=== PATIENT | female | born 1955 | race Caucasian/White ===

== ENCOUNTER 2021-03-30 02:13 | Day surgery (SDC) | payer MEDICARE, SELFPAY ==
[2021-03-21 12:16] VITALS: BMI 25.7
--- NOTE | 2021-03-21 12:24 | PC.NURSE ---
Report to the Outpatient Waiting Room, entrance under the green pavilion located off [facility], at time __0600_ on date _03/30/21__. OR Time: __729___. - You and your visitor will be asked a series of questions to screen for COVID 19 for your protection. - A mask is required within the hospital. - Only one visitor is allowed at this time. Patient visitors will be guided where to wait when not with patient. Preoperative COVID Testing Requirements: No COVID Test needed if: (proof is required; if not received patient will have Rapid Test prior to entry) - Patient has received COVID Vaccine at least 14 days prior to procedure date or - Patient has positive COVID test result within last 90 days of surgery date. COVID Test needed if above criteria is not met If not COVID vaccinated a COVID test must be conducted within 72 hours of surgery and patient is asked to isolate self from time of testing until procedure. You will go to the [employer] [facility] Testing Site for your COVID testing. The [employer] [facility] Testing site is located at the corner of [address] from [facility]. You will only be called if COVID results are positive and your surgeon may reschedule your elective surgery date. Patients may have clear liquids (water, carbonated beverages, clear teas, apple juice) until 3 hours prior to surgery with a maximum of 20 ounces. - No food from midnight until time of surgery - Infants may have breast milk until 4 hours before surgery, infant formula 6 hours prior to surgery. - Children will be allowed to drink immediately following surgery. If applicable, please bring a bottle or sippy cup to assist with drinking. Juice, water, soda, and popsicles are readily available. For infants on formula, please bring formula the day of surgery. Pacifiers are allowed. Take the following medications with a SIP of water the morning of surgery: __PROPYLTHIOURACIL Medications to discontinue per physician Date to take last dose Please no make-up, nail occitan, hairspray, perfume, deodorant, or body powder the day of surgery. No jewelry (including any body piercings) or valuables the day of surgery, leave them at home. Please take a shower or bath the night before, or the morning of, surgery with an antibacterial soap. Wear comfortable, loose fitting clothing. Children are encouraged to wear pajamas. - Jewelry must be removed prior to entering the operating room. Rings and piercings that are not removed may be cut off. - The hospital will not accept responsibility for valuables. - Please leave all valuables, including medications, at home the day of surgery. If you are going home after surgery, a licensed sanitation truck driver must drive you home. - NO public transportation without another adult. - We recommend that an adult stay with you for 24 hours following discharge. - We also recommend that you do not drive, make important decision, drink alcoholic beverages, or take any drugs that were not prescribed by your health care provider for at least 24 hours after your discharge time. For Pediatric surgeries, we recommend two adults accompany the child home (only one inside the building at this time). Follow any additional instructions given to you from your surgeon. Telephone instructions given to ___PT and asked if any additional questions and then verbalized understanding. Patient advised to call surgeon office or pre surgery nurse liaison [phone] if any additional questions.
--- NOTE | 2021-03-24 10:12 | PM.IMHP ---
H&P: HPI History of Present Illness Date/Time: 03/24/21 10:12 65-year-old female with urge urinary incontinence. She is doing well with the device. She is here for replacement of her InterStim battery Chief Complaint: urge incontinence Review of Systems Review of Systems: All systems reviewed & are unremarkable except as noted in HPI and below PMFSH Social History Social History Smoking status: Never smoker Second hand tobacco smoke exposure: No Alcohol intake: never Substance use: never Substance use type: does not use Living arrangements: with family Additional living arrangements comments: LIVES WITH SPOUSE CHRISTIANE [phone] Spiritual care concerns: No Meds Home Medications and Allergies Home Medications Medication Instructions Recorded Confirmed Type fluticasone propionate 2 spray INTRANASAL DAILY PRN 03/21/21 03/21/21 History loratadine [Claritin] 10 mg PO DAILY PRN 03/21/21 03/21/21 History omeprazole 40 mg QAM 03/21/21 03/21/21 History propylthiouracil 50 mg BID 03/21/21 03/21/21 History Allergies Allergy/AdvReac Type Severity Reaction Status Date / Time No Known Allergies Allergy Verified 03/21/21 12:13 Exam Narrative: no acute distress alert oriented x3 normal breathing previous incision from InterStim device well-healed Assessment and Plan Assessment and plan (1) Urge incontinence: Code(s): N39.41 - Urge incontinence Status: Acute Assessment and Plan: replacement of her InterStim bettery
[2021-03-30 06:00] VITALS: BP 141/68; PULSE 56; RESP 16; TEMP 36.6; O2SAT 100
[2021-03-30 06:09] VITALS: BMI 26.4
[2021-03-30] MEDS: LACTATED RINGERS 1,000 ML 30 ML IV CONT (06:47)
--- NOTE | 2021-03-30 06:48 | WPDANESEPPF ---
Anes - Initial Pre Proc Eval Procedure: Operation Date: 03/30/21 07:30 Proposed Procedures p Neurostimulator Battery Exchange - Tigre Shields MD Date/Time: 03/30/21 06:48 Surgeon: Tigre Shields MD Pre Op Diagnosis: Sensory Urgent Incont Patient Data Age: 65 Gender: F Height: 1.55 m Weight: 63.4 kg Allergies Allergy/AdvReac Type Severity Reaction Status Date / Time No Known Allergies Allergy Verified 03/30/21 06:08 Home Medications Medication Instructions Recorded Confirmed Type fluticasone propionate 2 spray INTRANASAL DAILY PRN 03/21/21 03/21/21 History loratadine [Claritin] 10 mg PO DAILY PRN 03/21/21 03/21/21 History omeprazole 40 mg QAM 03/21/21 03/21/21 History propylthiouracil 50 mg BID 03/21/21 03/30/21 History Patient hx anesthesia problems: none Family hx anesthesia problems: none Results Review: All pre-operative results and documents have been reviewed as part of the pre-operative evaluation. PMFSH Past Medical History Medical History (Updated 03/30/21 @ 06:48 by Jacob Olmedo MD) Hypothyroidism Overweight Surgical History Surgical History (Updated 03/30/21 @ 06:51 by Jacob Olmedo MD) H/O: hysterectomy Social History Social History Smoking status: Never smoker Second hand tobacco smoke exposure: No Alcohol intake: never Substance use: never Substance use type: does not use Living arrangements: with family Additional living arrangements comments: LIVES WITH SPOUSE CHRISTIANE [phone] Spiritual care concerns: No Anes - Eval Final PreProcedure Day of Procedure 03/30/21 06:48 Patient weight: overweight Heart: regular rate and rhythm Lungs: clear to auscultation Airway: Mallampati scale class 1 Neurological: alert and oriented Last oral intake: >/= 8 hours ASA classification: II Emergent: no Anesthetic plan: proceed Anesthesia type and monitoring: general GIVS and standard monitoring Results Review: All pre-operative results and documents have been reviewed as part of the pre-operative evaluation. Informed Consent: The patient's anesthetic plan and its attendant risks and benefits were discussed with the patient/family/POA. Questions were solicited and answers provided to the satisfaction of the patient/family/POA.
--- NOTE | 2021-03-30 07:18 | WPDHPUPDATE1 ---
History and Physical Update Update Date/Time: 03/30/21 07:18 History and Physical has been reviewed, including an updated exam of the patient. There are NO changes in the patient's condition. Risks, benefits, and alternatives have been discussed and questions answered. Patient agrees to proceed with procedure.
[2021-03-30] MEDS: ceFAZolin 2 GM/D5W 50 ML 2 GM/50 ML BAG IVPB (07:35)
[2021-03-30] MEDS: LIDO 1%/EPINEPHRINE 1:100,000 50 ML VIAL 10 ML INFILTRATE (07:53)
[2021-03-30 08:03] VITALS: BP 93/49; PULSE 60; RESP 12; O2SAT 97
--- NOTE | 2021-03-30 08:15 | W.PM.PROC2 ---
Procedure Note - Detailed Date of Procedure 03/30/21 Pre-op Diagnosis Sensory Urgent Incont Post-op Diagnosis same Procedure Performed Exchange of neurostimulator battery. Complex neurostimulator programming and impedance check Surgeon Tigre Shields MD Anesthesia MAC and local Indications This will with InterStim device in place. It is working well for symptoms. Her battery is nearing end of service for seizures today for exchange. She understands risks of bleeding, infection, damage to the vice. She agrees to proceed Findings Uncomplicated procedure Description of Procedure She was correctly identified. Informed consent obtained. From the procedure room. She was given MAC anesthesia. She was placed in a prone position. Lower back and buttock were prepped and draped in a sterile fashion. Time-out performed. I anesthetized the skin. I incised the skin. I located the neurostimulator battery. It was explanted. A new battery was programmed. It was connected to the previously placed lead. This placed in the pocket. Impedances were checked and found to be normal. I irrigated out all wounds. I assured hemostasis. I closed the subQ with 2-0 Vicryl. Skin with 4-0 Vicryl. Glue was applied. She was awakened transferred to PACU in stable condition. Estimated Blood Loss 1 Drains No Packing No Pathology none sent Complications No immediate complications Condition stable Disposition PACU
[2021-03-30 08:30] VITALS: BP 129/64; PULSE 56; RESP 12; O2SAT 100
[2021-03-30 09:00] VITALS: BP 131/56; PULSE 52; RESP 12
[2021-03-30 09:30] VITALS: BP 129/92; PULSE 50; RESP 12
== END 2021-03-30 09:40 | disposition home or self-care (01) ==
PROVIDERS: PCP Internal Medicine; Visit Provider Urology
PROC: (CPT 64590; principal; 2021-03-30 07:30)
DX: Z45.42 Encounter for adjustment and management of neurostimulator (principal); N39.41 Urge incontinence; E03.9 Hypothyroidism, unspecified
CPT/HCPCS: 64590; C1767; C1787; J0690; J2250; J2405; J2704; J3010; J7120

== ENCOUNTER 2021-12-24 11:37 | Outpatient (CLI) | payer MEDICARE, SELFPAY ==
--- NOTE | 2021-12-24 12:14 | ECG_ITS ---
Measurements Intervals [place] Rate: 59 P: 58 NV: 145 QRS: -5 QRSD: 84 T: 40 QT: 394 QTc: 391 Interpretive Statements SINUS BRADYCARDIA OTHERWISE WITHIN NORMAL LIMITS NO PREVIOUS ECG AVAILABLE FOR COMPARISON Electronically Signed On 12-24-2021 14:08:28 CDT by Celestino Courtney M.D.
[2021-12-24 13:04] LABS: Basophils Percent Auto 0.5 % (0.2-1.2); Eosinophils Absolute Auto 0.1 K/mm3 (0-0.3); Eosinophils Percent Auto 1.8 % (0-4.4); Hematocrit 48.4 % (37.0-47.0); Hemoglobin 15.7 g/dL (12.0-15.0); Immature Granulocyte Absolute 0.03 K/mm3 (0.00-0.031); Immature Granulocyte Percent A 0.4 % (0-0.5); Lymphocytes Absolute Auto 2.64 K/mm3 (0.9-3.2); Lymphocytes Percent Auto 34.5 % (18.3-44.2); Mean Corpuscular HGB Conc 32.4 g/dl (32-36); Mean Corpuscular Hemoglobin 29.8 pg (26-34); Mean Corpuscular Volume 91.8 fl (80-100); Mean Platelet Volume 10.2 fl (7.4-10.4); Monocytes Absolute Auto 0.5 K/mm3 (0.1-0.6); Monocytes Percent Auto 6.8 % (2.6-8.5); Neutrophils Absolute Auto 4.3 K/mm3 (1.3-6.7); Platelet Count Result 212 k/mm3 (150-375); Red Blood Count 5.27 M/mm3 (4.2-5.4); Red Cell Distribution Width 13.4 % (11.5-14.5); White Blood Count 7.7 K/mm3 (4.5-10.0)
[2021-12-24 13:13] LABS: Alanine Aminotransferase 16 U/L (6-35); Albumin Level 4.4 g/dL (3.5-5.1); Alkaline Phosphatase 79 U/L (38-126); Anion Gap 8 mmol/L (8-16); Aspartate Amino Transferase 21 U/L (14-36); Bilirubin,Total 0.3 mg/dL (0.2-1.3); Blood Urea Nitrogen 16 mg/dL (7-17); Calcium 9.7 mg/dL (8.4-10.2); Carbon Dioxide 28 mmol/L (22-30); Chloride 101 mmol/L (98-107); Estimated Glomerular Filt Rate > 60; Glucose 93 mg/dL (65-110); Potassium 4.2 mmol/L (3.4-5.0); Sodium 137 mmol/L (137-145)
[2021-12-24 13:15] LABS: Prothrombin Time 12.8 Seconds (11.1-14.7)
[2021-12-24 13:16] LABS: Partial Thromboplastin Time 28.6 SECONDS (22.3-36.8)
== END 2021-12-24 11:38 | disposition home or self-care (01) ==
LOC: ANHSURGERY 11:40
PROVIDERS: PCP Internal Medicine; Visit Provider Urology
DX: N39.41 Urge incontinence (principal); Z01.818 Encounter for other preprocedural examination; R94.31 Abnormal electrocardiogram [ECG] [EKG]
CPT/HCPCS: 36415; 80053; 85025; 85610; 85730; 87086; 93005

== ENCOUNTER 2022-01-07 00:55 | Day surgery (SDC) | payer MEDICARE, SELFPAY ==
--- NOTE | 2021-12-24 11:41 | PC.NURSE ---
PRE0OP INSTRUCTIONS, PLEASE READ CAREFULLY Report to the Outpatient Waiting Room, entrance under the green pavilion located off [facility], at time _0600_ on date _01/07/22_. OR Time: _07_. - You and your visitor will be asked to self-screen and do not enter if you have any COVID symptoms. - Only one visitor and NO children visitors are allowed at this time. - The patient visitor is requested to leave or wait in car when not with patient due to restrictions. - A mask is required within the hospital. Patients may have clear liquids (water, carbonated beverages, clear teas, apple juice) until 3 hours prior to surgery (0430 AM) with a maximum of 20 ounces. - No food from midnight until time of surgery Take the following medications with a SIP of water the morning of surgery: _PROPYLTHIOURACIL_ Medications to discontinue per physician N/A Date to take last dose Please no make-up, nail bruneian, hairspray, perfume, deodorant, or body powder the day of surgery. No jewelry (including any body piercings) or valuables the day of surgery, leave them at home. Please take a shower or bath the night before, or the morning of, surgery with an antibacterial soap. Wear comfortable, loose fitting clothing. - Jewelry must be removed prior to entering the operating room. Rings and piercings that are not removed may be cut off. - The hospital will not accept responsibility for valuables. - Please leave all valuables, including medications, at home the day of surgery. If you are going home after surgery, a licensed marine engine driver must drive you home. - NO public transportation without another adult. - We recommend that an adult stay with you for 24 hours following discharge. - We also recommend that you do not drive, make important decision, drink alcoholic beverages, or take any drugs that were not prescribed by your health care provider for at least 24 hours after your discharge time. Follow any additional instructions given to you from your surgeon. If you or anyone in your household have experienced Covid symptoms in the past week, please notify your surgeon or the nurse liaison at the phone number below for possible testing. Instructions given to ___PT and asked if any additional questions and then verbalized understanding. Patient advised to call surgeon office or pre surgery nurse liaison [phone] if any additional questions.
[2021-12-24 11:58] VITALS: BP 180/88; PULSE 58; RESP 18; TEMP 36.5; O2SAT 98; BMI 26.5
--- NOTE | 2022-01-04 08:24 | PM.IMHP ---
H&P: HPI History of Present Illness Date/Time: 01/04/22 08:24 Chief Complaint: Pelvic organ prolapse Narrative: 66-year-old with pelvic organ prolapse post hysterectomy as well as stress incontinence. She does have InterStim device. It functions well Review of Systems Review of Systems: All systems reviewed & are unremarkable except as noted in HPI and below PMFSH Past Medical History Medical History Hypothyroidism Overweight Surgical History Surgical History H/O: hysterectomy Social History Social History Smoking status: Never smoker Second hand tobacco smoke exposure: No Alcohol intake: never Substance use: never Substance use type: does not use Additional living arrangements comments: LIVES WITH SPOUSE CHRISTIANE [phone] Spiritual care concerns: No Meds Home Medications and Allergies Home Medications Medication Instructions Recorded Confirmed Type loratadine 10 mg tablet (Claritin) 10 mg PO DAILY PRN Congestion 03/21/21 12/24/21 History omeprazole 40 mg capsule,delayed 40 mg QAM 03/21/21 12/24/21 History release propylthiouracil 50 mg tablet 50 mg BID 03/21/21 12/24/21 History Allergies Allergy/AdvReac Type Severity Reaction Status Date / Time No Known Allergies Allergy Verified 12/24/21 11:55 Exam Narrative: No acute distress Normal breathing Urethral mobility Cystocele at +3. [place] at 0 Assessment and Plan Assessment and plan (1) Vaginal wall prolapse: Code(s): N81.10 - Cystocele, unspecified Status: Acute Assessment and Plan: Robotic sacral colpopexy. She understands risks of bleeding, infection, damage to surrounding organs, damage to the urinary tract, fistula formation, recurrence of prolapse, mesh related complications she agrees to proceed (2) WILLIE (stress urinary incontinence, female): Code(s): N39.3 - Stress incontinence (female) (male) Status: Acute Assessment and Plan: Concomitant urethral sling. Understands risks of bleeding, infection, damage to the urethra bladder, recurrent or persistent incontinence, mesh related complications, obstructive voiding. Agrees to proceed
[2022-01-07] VITALS (13 sets, daily range): BP systolic 126–155; BP diastolic 59–82; PULSE 54–70; RESP 13–20; TEMP 36.2–36.3; O2SAT 95–100
--- NOTE | 2022-01-07 06:53 | WPDANESEPPF ---
Anes - Initial Pre Proc Eval Procedure: Operation Date: 01/07/22 07:30 Proposed Procedures p Robotic Sacrocolpopexy, - Tigre Shields MD s Urethral Sling - Tigre Shields MD Date/Time: 01/07/22 06:53 Surgeon: Tigre Shields MD Pre Op Diagnosis: uterovaginal prolapse,cystocele, stress incont Patient Data Age: 66 Gender: F Height: 1.55 m Weight: 63.7 kg Last Vital Signs Temp 36.5 C 12/24/21 11:58 Pulse 58 L 12/24/21 11:58 Resp 18 12/24/21 11:58 BP 180/88 H 12/24/21 11:58 Pulse Ox 98 12/24/21 11:58 O2 Del Method Room Air 12/24/21 11:58 Allergies Allergy/AdvReac Type Severity Reaction Status Date / Time No Known Allergies Allergy Verified 12/24/21 11:55 Home Medications Medication Instructions Recorded Confirmed Type loratadine 10 mg tablet (Claritin) 10 mg PO DAILY PRN Congestion 03/21/21 12/24/21 History omeprazole 40 mg capsule,delayed 40 mg QAM 03/21/21 12/24/21 History release propylthiouracil 50 mg tablet 50 mg BID 03/21/21 12/24/21 History Patient hx anesthesia problems: none Family hx anesthesia problems: none Results Review: All pre-operative results and documents have been reviewed as part of the pre-operative evaluation. [facility] Past Medical History Medical History GERD (gastroesophageal reflux disease) Hyperthyroidism Overweight Surgical History Surgical History H/O: hysterectomy Social History Social History Smoking status: Never smoker Second hand tobacco smoke exposure: No Alcohol intake: never Substance use: never Substance use type: does not use Living arrangements: with family Additional living arrangements comments: LIVES WITH SPOUSE CHRISTIANE [phone] Spiritual care concerns: No Anes - Eval Final PreProcedure Day of Procedure 01/07/22 06:53 Patient weight: overweight Heart: regular rate and rhythm Lungs: clear to auscultation Neurological: alert and oriented Last oral intake: >/= 8 hours ASA classification: II Emergent: no Anesthetic plan: proceed Anesthesia type and monitoring: general ETT and standard monitoring Results Review: All pre-operative results and documents have been reviewed as part of the pre-operative evaluation. Informed Consent: The patient's anesthetic plan and its attendant risks and benefits were discussed with the patient/family/POA. Questions were solicited and answers provided to the satisfaction of the patient/family/POA.
--- NOTE | 2022-01-07 07:14 | WPDHPUPDATE1 ---
History and Physical Update Update Date/Time: 01/07/22 07:14 History and Physical has been reviewed, including an updated exam of the patient. There are NO changes in the patient's condition. Risks, benefits, and alternatives have been discussed and questions answered. Patient agrees to proceed with procedure.
[2022-01-07] MEDS: LACTATED RINGERS 1,000 ML 30 ML IV CONT ×2 (07:23→10:01)
[2022-01-07] MEDS: ceFAZolin 2 GM/D5W 50 ML 2 GM/50 ML BAG IVPB (07:29)
[2022-01-07] MEDS: KETOROLAC 30 MG/ML VIAL (*BKC) IV PUSH (09:08)
--- NOTE | 2022-01-07 10:06 | W.PM.PROC2 ---
Procedure Note - Detailed Date of Procedure 01/07/22 Pre-op Diagnosis Post hysterectomy vaginal vault prolapse, stress incontinence Post-op Diagnosis Same Procedure Performed Robotic assisted laparoscopic sacral colpopexy Urethral sling Cystoscopy Surgeon Tigre Shields MD Anesthesia General Indications This is a woman with post hysterectomy vaginal vault prolapse as well as stress urinary incontinence. She desires surgical correction. She understands risks of bleeding, infection, diskitis, damage to surrounding organs, damage to the bowel or urinary tract, recurrence of prolapse, dyspareunia, vaginal mesh exposure, urinary tract mesh exposure, obstructive voiding requiring secondary procedure, hip and leg pain, and other perioperative intraoperative and postoperative complications. She is to proceed Findings See below Description of Procedure Before going back to the operating room her InterStim device was turned off. She will turn it back on when appropriate. She was correctly identified. Informed consent obtained. She is brought to the operating room. She was given general anesthesia. She was placed in the lithotomy position. She was given appropriate perioperative antibiotics. She was prepped and draped in a sterile fashion. A time-out performed. I anesthetized the skin 3 fingerbreadths cephalad to the umbilicus. I incised the skin. I located the fascia. I grasped the fascia with Jeanne clamps. I incised the fascia sharply and a Costa type technique. I placed Vicryl sutures for later fascial closure. I placed a midline trocar. Under direct vision placed 2 additional trocars in the right upper quadrant and 2 additional trocars in the left upper quadrant. She was placed in steep Trendelenburg. The robot was docked. I sat at the console. There were some adhesions of colon in the pelvis. These were all taken down sharply without use of cautery. With the Sizer in the vagina and created a plane on the anterior and posterior vaginal wall for several cm taking great care not to injure the vagina, bladder, or rectum. Of note there was some scarring on the anterior vaginal wall. There is no sign of any bladder injury. I introduced the mesh into the vagina. I sewed the anterior leaflet of mesh on the anterior vaginal wall and posterior leaf of the mesh on the posterior vaginal wall with several sutures of 2 0 Reva-Giorgi taking great care not to go through and through. I then opened up the peritoneum over the sacral promontory. I carried this incision into the cul-de-sac. I freed up the edges for later retroperitonealization of the mesh. I located the anterior longitudinal ligament of the sacrum. I cleaned off any fatty tissues. I then tensioned my mesh appropriately. I did a vaginal exam to ensure prolapse reduction without undue tension. I then sewed the proximal leaflet of mesh onto the ligament with several sutures of 2 0 Reva-Giorgi. I then used a 2 0 Monocryl to meticulously retroperitonealized all mesh. I allowed the colon to go back into its normal anatomic location. There is no sign of impingement. He had an was then exited. Fascial sutures were closed. The wounds were all irrigated and closed with 4 O Monocryl and skin glue. She was then repositioned and prepped for urethral sling. I marked out the inner thigh incisions. I anesthetized the skin and made those incisions. I then anesthetized the anterior vaginal wall over the mid urethra. I made a 1 cm incision. I dissected out laterally taking great care not to injure the urethra vaginal wall. I passed the helical trocars. I did this 1st on the left than on the right from the thigh incision towards the vaginal incision. Sling was connected to the trocars and brought out through the thigh incision. I tensioned the sling appropriately. I cut and removed the plastic sleeves. I then performed cystoscopy. The bladder showed no evidence of surgical artifact or tumor. Both
[2022-01-07] MEDS: fentaNYL CITRATE INJ (*CRX) 100 MCG/2 ML VIAL 25 MCG IV PUSH ×2 (10:41→10:51)
[2022-01-07] MEDS: oxyCODONE HCL (*CRX) 5 MG TAB IR PO (12:30)
== END 2022-01-07 12:40 | disposition home or self-care (01) ==
PROVIDERS: PCP Internal Medicine; Visit Provider Urology
PROC: (CPT 57425; principal; 2022-01-07 07:30)
PROC: (CPT 57288; 2022-01-07 07:30)
DX: N39.3 Stress incontinence (female) (male) (principal); N81.10 Cystocele, unspecified; E03.9 Hypothyroidism, unspecified; K21.9 Gastro-esophageal reflux disease without esophagitis; K66.0 Peritoneal adhesions (postprocedural) (postinfection)
CPT/HCPCS: 57288; 57425; S2900; 36415; 80053; 85025; 85610; 85730; 86850; 86900; 86901; 87086; 93005; A9270; C1758; C1769; C1771; C1781; C9290; J0131; J0690; J1100; J1170; J1885; J2250; J2405; J2704; J2710; J3010; J7030; J7120